=== PATIENT | female | born 1975 | race Caucasian/White ===

== ENCOUNTER 2018-06-24 11:08 | Emergency (ER) | payer MEDICAID ==
--- NOTE | 2018-06-24 11:21 | EDM.PDOC ---
ED HPI GENERAL MEDICAL PROBLEM - General Chief Complaint: General Stated Complaint: MED REFIL Time Seen by Provider: 06/24/18 11:13 Source of Information: Reports: Patient History Limitations: Reports: No Limitations - History of Present Illness INITIAL COMMENTS - FREE TEXT/NARRATIVE: HISTORY AND PHYSICAL: History of present illness: Patient is a 42-year-old female who presents to the emergency room requesting medication refill. She states [place] and had a primary care provider who did her pain management for her methadone and oxycodone. She was hospitalized at our facility on 06/09/18 for cardiomyopathy and congestive heart failure exacerbation. At that time she was informed that Dr. Kirby, our support technician, could be her primary care provider. She did have an echocardiogram done on 06/10/18 with the understanding that he would assume care and refill her medications at that time as well. During the appointment she was told that she needed to find a primary care provider and was unable to make an appointment until 06/28/[address] Briseno at [facility]. She states she has been out of her medications for the past 2 days. She takes these for chronic back pain and lumbar fusion. She denies any fever, chills, chest pain, shortness of breath or cough. Denies any GI or symptoms. She has been eating and drinking appropriately. Other than the medication refill she has no other current complaints or concerns. Review of systems: As per history of present illness and below otherwise all systems reviewed and negative. Past medical history: As per history of present illness and as reviewed below otherwise noncontributory. Surgical history: As per history of present illness and as reviewed below otherwise noncontributory. Social history: See social history for further information Family history: As per history of present illness and as reviewed below otherwise noncontributory. Physical exam: General: Well-developed and well-nourished 42-year-old female. Alert and oriented. Nontoxic appearing and in no acute distress. HEENT: Atraumatic, normocephalic, pupils equal and reactive bilaterally, negative for conjunctival pallor or scleral icterus, mucous membranes moist, neck supple, nontender, trachea midline. No drooling or trismus noted. No meningeal signs. No hot potato voice noted. Lungs: Clear to auscultation, breath sounds equal bilaterally, chest nontender. Heart: S1S2, regular rate and rhythm without overt murmur Abdomen: Soft, nondistended, nontender. Pelvis: Stable nontender. Genitourinary: Deferred. Rectal: Deferred. Skin: Intact, warm, dry. No lesions or rashes noted. Extremities: Atraumatic, moves all per self. Neurovascular unremarkable. Neuro: Awake, alert, oriented. Cranial nerves II through XII unremarkable. Cerebellum unremarkable. Motor and sensory unremarkable throughout. Exam nonfocal. Notes: Patient is aware that these medications are not routinely refilled through the emergency room. A lengthy discussion was had about appropriate follow-up and establishment of primary care. She does have an appointment 5 days from now. I will not refill her methadone. We'll give her a few tablets of her oxycodone to get her through to her appointment on Thursday. She is aware that these medications will not further be refilled through the emergency department. She voices understanding and is agreeable to plan of care. Denies any further questions or concerns at this time. Diagnostics: None Therapeutics: None Prescription: Oxycodone (#20) Impression: Encounter for medication refill History of chronic pain Plan: 1. Please keep your appointment with Dr. Briseno at [facility] on 06/28/2018. 2. Continue taking your medications as prescribed. 3. Return to the ED as needed and as discussed. Definitive disposition and diagnosis as appropriate pending reevaluation and review of above. - Related Data Allergies Allergy/AdvReac Type Severity Reaction Status Date / Time No Known Allergies Allergy Verified 06/24/18 11:23 Home Meds: Home Meds Melatonin 3 mg PO BEDTIME PRN 06/09/18 [History] Methadone 10 mg PO QID 06/09/18 [History] oxyCODONE HCl [Oxycodone HCl] 5 mg PO TID 06/09/18 [History] Ferrous Fumarate 324 mg PO DAILY 30 Days #30 tablet 06/10/18 [Rx] Furosemide 20 mg PO DAILY 30 Days #30 tab 06/10/18 [Rx] oxyCODONE 5 mg PO TID PRN #20 tab 06/24/18 [Rx] Past Medical History Cardiovascular History: Reports: Blood Clots/VTE/DVT, Cardiomyopathy, Heart Failure, Other (See Below) Other Cardiovascular History: Blood clot left leg Mar 2018 [employer] History: Reports: Musculoskeletal History: Reports: Back Pain, Chronic Psychiatric History: Reports: Depression Hematologic History: Reports: Anemia, Iron Deficiency Other Hematologic History: needs iron infusions - Infectious Disease History Infectious Disease History: Reports: Chicken Pox - Past Surgical History Cardiovascular Surgical History: Reports: None GI Surgical History: Reports: Appendectomy, Bariatric Procedure, Cholecystectomy Musculoskeletal Surgical History: Reports: Other (See Below) Other Musculoskeletal Surgeries/Procedures:: L5S1 fusion Social & Family History - Family History Family Medical History: Noncontributory (Father had liver cancer; mother had a thyroid problem) HEENT: Reports: None Endocrine/Metabolic: Reports: Other (See Below) Other Endocrine/Metabolic Family History: non functioning thyroid Oncologic: Reports: Liver - Caffeine Use Caffeine Use: Reports: None ED ROS GENERAL - Review of Systems Review Of Systems: ROS reveals no pertinent complaints other than HPI. ED EXAM, GENERAL - Physical Exam Exam: See Below (See dictation) Course - Vital Signs Last Recorded V/S: Last Vital Signs Temp 97.2 F 06/24/18 11:24 Pulse 101 H 06/24/18 11:24 Resp 16 06/24/18 11:24 BP 120/70 06/24/18 11:24 Pulse Ox 97 06/24/18 11:24 Departure - Departure Time of Disposition: 11:29 Disposition: Home, Self-Care 01 Clinical Impression: Encounter for medication refill, History of chronic pain - Discharge Information Prescriptions: oxyCODONE 5 mg PO TID PRN #20 tab PRN Reason: Pain (Severe 7-10) Referrals: PCP,Unknown [Primary Care Provider] - Forms: ED Department Discharge Additional Instructions: The following information is given to patients seen in the emergency department who are being discharged to home. This information is to outline your options for follow-up care. We provide all patients seen in our emergency department with a follow-up referral. The need for follow-up, as well as the timing and circumstances, are variable depending upon the specifics of your emergency department visit. If you don't have a primary care physician on staff, we will provide you with a referral. We always advise you to contact your personal physician following an emergency department visit to inform them of the circumstance of the visit and for follow-up with them and/or the need for any referrals to a consulting specialist. The emergency department will also refer you to a specialist when appropriate. This referral assures that you have the opportunity for follow-up care with a specialist. All of these measure are taken in an effort to provide you with optimal care, which includes your follow-up. Under all circumstances we always encourage you to contact your private physician who remains a resource for coordinating your care. When calling for follow-up care, please make the office aware that this follow-up is from your recent emergency room visit. If for any reason you are refused follow-up, please contact the [facility] Emergency Department at and asked to speak to the emergency department charge nurse. [facility] [address] [place] [id number] [facility] [address] [place] [id number] 1. Please keep your appointment with Dr. Briseno at [facility] on 06/28/2018. 2. Continue taking your medications as prescribed. 3. Return to the ED as needed and as discussed.
== END 2018-06-24 11:59 | disposition home or self-care (01) ==
LOC: MW.ED 11:08
DX: G89.29 Other chronic pain (principal); M54.9 Dorsalgia, unspecified; M43.27 Fusion of spine, lumbosacral region; D50.9 Iron deficiency anemia, unspecified; I50.9 Heart failure, unspecified; F32.9 Major depressive disorder, single episode, unspecified; Z79.899 Other long term (current) drug therapy
CPT/HCPCS: 99281; 99282

== ENCOUNTER 2018-08-12 16:59 | Emergency (ER) | payer MEDICAID ==
--- NOTE | 2018-08-12 17:15 | EDM.PDOC ---
<Maren Ureña - Last Filed: 08/12/18 19:54> ED HPI GENERAL MEDICAL PROBLEM - General Chief Complaint: Lower Extremity Injury/Pain Stated Complaint: PAIN IN RIGHT LEG Time Seen by Provider: 08/12/18 17:00 - History of Present Illness INITIAL COMMENTS - FREE TEXT/NARRATIVE: This case was endorsed to me to follow up the consult per Dr. Morfin as he has come here to decide on disposition of patient either for admission or discharge home. The patient was offered admission by Dr. Morfin and she is declining at this time. Please see his consult note for further information. We will place the patient's name on the expedited follow-up with Dr. Kirby our receiving supervisor, whom she has seen before. Dr. Morfin is also recommending that the patient double her Lasix, she is currently taking 40 mg once a day and he is recommending 40 mg twice a day. Patient is comfortable with this care plan. The patient is aware of risks of not being admitted and is comfortable with this Impression: CHF exacerbation with history of same, declining admission - Related Data Allergies Allergy/AdvReac Type Severity Reaction Status Date / Time No Known Allergies Allergy Verified 06/24/18 11:23 Home Meds: Home Meds Melatonin 3 mg PO BEDTIME PRN 06/09/18 [History] Methadone 10 mg PO QID 06/09/18 [History] oxyCODONE HCl [Oxycodone HCl] 5 mg PO TID 06/09/18 [History] Ferrous Fumarate 324 mg PO DAILY 30 Days #30 tablet 06/10/18 [Rx] oxyCODONE 5 mg PO TID PRN #20 tab 06/24/18 [Rx] Carvedilol [Coreg] 3.125 mg PO BID 08/12/18 [History] Furosemide 1 tab PO DAILY 08/12/18 [History] Lisinopril [Prinivil] 2.5 mg PO DAILY 08/12/18 [History] Review of Systems - Review of Systems Review Of Systems: ROS reveals no pertinent complaints other than HPI. ED EXAM, GENERAL - Physical Exam Exam: See Below (See dictation) Course - Vital Signs Last Recorded V/S: Last Vital Signs Temp 97.7 F 08/12/18 17:13 Pulse 93 08/12/18 20:17 Resp 16 08/12/18 20:17 BP 117/64 08/12/18 20:17 Pulse Ox 98 08/12/18 20:17 - Orders/Labs/Meds Orders: Active Orders 24 hr Category Date Time Status Notify Provider Consults [RC] ASDIRECTED Care 08/12/18 19:14 Active Consult to Physician [CONS] Stat Cons 08/12/18 19:14 Active Saline Lock Insert [OM.PC] Stat Oth 08/12/18 17:29 Ordered Labs: Laboratory Tests 08/12/18 08/12/18 08/12/18 Range/Units 17:45 17:45 17:45 WBC 6.34 (4.0-11.0) K/uL RBC 4.60 (4.30-5.90) M/uL Hgb 10.4 L (12.0-16.0) g/dL Hct 33.3 L (36.0-46.0) % MCV 72.4 L (80.0-98.0) fL MCH 22.6 L (27.0-32.0) pg MCHC 31.2 (31.0-37.0) g/dL RDW Std Deviation 50.2 (28.0-62.0) fl RDW Coeff of Fiordaliza 19 H (11.0-15.0) % Plt Count 243 (150-400) K/uL MPV 9.90 (7.40-12.00) fL Neut % (Auto) 51.8 (48.0-80.0) % Lymph % (Auto) 30.9 (16.0-40.0) % Harvey % (Auto) 12.8 (0.0-15.0) % Eos % (Auto) 3.6 (0.0-7.0) % Baso % (Auto) 0.9 (0.0-1.5) % Neut # (Auto) 3.3 (1.4-5.7) K/uL Lymph # (Auto) 2.0 (0.6-2.4) K/uL Harvey # (Auto) 0.8 (0.0-0.8) K/uL Eos # (Auto) 0.2 (0.0-0.7) K/uL Baso # (Auto) 0.1 (0.0-0.1) K/uL Nucleated RBC % 0.0 /100WBC Nucleated RBCs # 0 K/uL INR APTT (18.6-31.3) SEC Sodium 140 (136-145) mmol/L Potassium 4.1 (3.5-5.1) mmol/L Chloride 105 (98-107) mmol/L Carbon Dioxide 25.2 (21.0-32.0) mmol/L BUN 19 H (7.0-18.0) mg/dL Creatinine 0.9 (0.6-1.0) mg/dL Est Cr Clr Drug Dosing TNP Estimated GFR (MDRD) > 60.0 ml/min Glucose 78 (74-106) mg/dL Calcium 8.0 L (8.5-10.1) mg/dL Total Bilirubin 0.8 (0.2-1.0) mg/dL AST 21 (15-37) IU/L ALT 21 (14-63) IU/L Alkaline Phosphatase 77 (46-116) U/L B-Natriuretic Peptide (<100) PG/ML Total Protein 6.9 (6.4-8.2) g/dL Albumin 3.1 L (3.4-5.0) g/dL Globulin 3.8 (2.6-4.0) g/dL Albumin/Globulin Ratio 0.8 L (0.9-1.6) HCG, Qual NEGATIVE (NEG) 08/12/18 08/12/18 Range/Units 17:45 17:45 WBC (4.0-11.0) K/uL RBC (4.30-5.90) M/uL Hgb (12.0-16.0) g/dL Hct (36.0-46.0) % MCV (80.0-98.0) fL MCH (27.0-32.0) pg MCHC (31.0-37.0) g/dL RDW Std Deviation (28.0-62.0) fl RDW Coeff of Fiordaliza (11.0-15.0) % Plt Count (150-400) K/uL MPV (7.40-12.00) fL Neut % (Auto) (48.0-80.0) % Lymph % (Auto) (16.0-40.0) % Harvey % (Auto) (0.0-15.0) % Eos % (Auto) (0.0-7.0) % Baso % (Auto) (0.0-1.5) % Neut # (Auto) (1.4-5.7) K/uL Lymph # (Auto) (0.6-2.4) K/uL Harvey # (Auto) (0.0-0.8) K/uL Eos # (Auto) (0.0-0.7) K/uL Baso # (Auto) (0.0-0.1) K/uL Nucleated RBC % /100WBC Nucleated RBCs # K/uL INR 1.13 APTT 25.5 (18.6-31.3) SEC Sodium (136-145) mmol/L Potassium (3.5-5.1) mmol/L Chloride (98-107) mmol/L Carbon Dioxide (21.0-32.0) mmol/L BUN (7.0-18.0) mg/dL Creatinine (0.6-1.0) mg/dL Est Cr Clr Drug Dosing Estimated GFR (MDRD) ml/min Glucose (74-106) mg/dL Calcium (8.5-10.1) mg/dL Total Bilirubin (0.2-1.0) mg/dL AST (15-37) IU/L ALT (14-63) IU/L Alkaline Phosphatase (46-116) U/L B-Natriuretic Peptide 1050 H (<100) PG/ML Total Protein (6.4-8.2) g/dL Albumin (3.4-5.0) g/dL Globulin (2.6-4.0) g/dL Albumin/Globulin Ratio (0.9-1.6) HCG, Qual (NEG) Meds: Medications Discontinued Medications Generic Name Dose Route Start Last Admin Trade Name Freq PRN Reason Stop Dose Admin Sodium Chloride 10 ml 08/12/18 17:29 08/12/18 17:47 Saline Flush FLUSH 10 ml ASDIRECTED PRN Administration Keep Vein Open Sodium Chloride 2.5 ml 08/12/18 17:29 08/12/18 17:47 Saline Flush FLUSH 2.5 ml ASDIRECTED PRN Administration Keep Vein Open Departure - Departure Time of Disposition: 19:55 Disposition: Home, Self-Care 01 Condition: Good Clinical Impression: Acute exacerbation of congestive heart failure Qualifiers: Heart failure type: unspecified Qualified Code(s): I50.9 - Heart failure, unspecified - Discharge Information Instructions: Heart Failure Exacerbation Referrals: PCP,Unknown [Primary Care Provider] - Forms: ED Department Discharge Additional Instructions: The following information is given to patients seen in the emergency department who are being discharged to home. This information is to outline your options for follow-up care. We provide all patients seen in our emergency department with a follow-up referral. The need for follow-up, as well as the timing and circumstances, are variable depending upon the specifics of your emergency department visit. If you don't have a primary care physician on staff, we will provide you with a referral. We always advise you to contact your personal physician following an emergency department visit to inform them of the circumstance of the visit and for follow-up with them and/or the need for any referrals to a consulting specialist. The emergency department will also refer you to a specialist when appropriate. This referral assures that you have the opportunity for followup care with a specialist. All of these measure are taken in an effort to provide you with optimal care, which includes your followup. Under all circumstances we always encourage you to contact your private physician who remains a resource for coordinating your care. When calling for followup care, please make the office aware that this follow-up is from your recent emergency room visit. If for any reason you are refused follow-up, please contact the [facility] emergency department at and ask to speak to the emergency department charge nurse. [facility] Primary care- Internal Medicine and Family [address] Morfin's advice and take your Lasix, 40 mg, twice a day versus once a day. Please call the clinic first thing in the morning to schedule an expedited follow-up with Dr. Kirby the receiving supervisor as was discussed. Return to ER as needed as discussed - My Orders Last 24 Hours: My Active Orders 08/12/18 17:29 Saline Lock Insert [OM.PC] Stat - Assessment/Plan Last 24 Hours: My Active Orders 08/12/18 17:29 Saline Lock Insert [OM.PC] Stat <Gertrude Noel - Last Filed: 08/12/18 22:11> ED HPI GENERAL MEDICAL PROBLEM - History of Present Illness INITIAL COMMENTS - FREE TEXT/NARRATIVE: I did not physically see this patient. Void note. Dr. Macdonald saw patient and assumed care, diagnostics, and disposition for patient. Right Lower Leg Pain Score (Numeric/FACES): 8 Past Medical History Cardiovascular History: Reports: Blood Clots/VTE/DVT, Cardiomyopathy, Heart Failure, Other (See Below) Other Cardiovascular History: Blood clot left leg Mar 2018 Gastrointestinal History: Reports: None Genitourinary History: Reports: None ARCHITECTURE INTERN History: Reports: Musculoskeletal History: Reports: Back Pain, Chronic Neurological History: Reports: None Psychiatric History: Reports: Depression Endocrine/Metabolic History: Reports: None Hematologic History: Reports: Anemia, Iron Deficiency Other Hematologic History: needs iron infusions Immunologic History: Reports: None Oncologic (Cancer) History: Reports: None Dermatologic History: Reports: None - Infectious Disease History Infectious Disease History: Reports: Chicken Pox - Past Surgical History Cardiovascular Surgical History: Reports: None GI Surgical History: Reports: Appendectomy, Bariatric Procedure, Cholecystectomy Musculoskeletal Surgical History: Reports: Other (See Below) Other Musculoskeletal Surgeries/Procedures:: [id number] fusion Social & Family History - Family History Family Medical History: Noncontributory (Father had liver cancer; mother had a thyroid problem) HEENT: Reports: None Endocrine/Metabolic: Reports: Other (See Below) Other Endocrine/Metabolic Family History: non functioning thyroid Oncologic: Reports: Liver - Caffeine Use Caffeine Use: Reports: None Review of Systems - Review of Systems Review Of Systems: ROS reveals no pertinent complaints other than HPI. ED EXAM, GENERAL - Physical Exam Exam: See Below (See dictation) Course - Vital Signs Last Recorded V/S: Last Vital Signs Temp 97.7 F 08/12/18 17:13 Pulse 93 08/12/18 20:17 Resp 16 08/12/18 20:17 BP 117/64 08/12/18 20:17 Pulse Ox 98 08/12/18 20:17 - Orders/Labs/Meds Orders: Active Orders 24 hr Category Date Time Status Notify Provider Consults [RC] ASDIRECTED Care 08/12/18 19:14 Active Consult to Physician [CONS] Stat Cons 08/12/18 19:14 Active Saline Lock Insert [OM.PC] Stat Oth 08/12/18 17:29 Ordered Labs: Laboratory Tests 08/12/18 08/12/18 08/12/18 Range/Units 17:45 17:45 17:45 WBC 6.34 (4.0-11.0) K/uL RBC 4.60 (4.30-5.90) M/uL Hgb 10.4 L (12.0-16.0) g/dL Hct 33.3 L (36.0-46.0) % MCV 72.4 L (80.0-98.0) fL MCH 22.6 L (27.0-32.0) pg MCHC 31.2 (31.0-37.0) g/dL RDW Std Deviation 50.2 (28.0-62.0) fl RDW Coeff of Fiordaliza 19 H (11.0-15.0) % Plt Count 243 (150-400) K/uL MPV 9.90 (7.40-12.00) fL Neut % (Auto) 51.8 (48.0-80.0) % Lymph % (Auto) 30.9 (16.0-40.0) % Harvey % (Auto) 12.8 (0.0-15.0) % Eos % (Auto) 3.6 (0.0-7.0) % Baso % (Auto) 0.9 (0.0-1.5) % Neut # (Auto) 3.3 (1.4-5.7) K/uL Lymph # (Auto) 2.0 (0.6-2.4) K/uL Harvey # (Auto) 0.8 (0.0-0.8) K/uL Eos # (Auto) 0.2 (0.0-0.7) K/uL Baso # (Auto) 0.1 (0.0-0.1) K/uL Nucleated RBC % 0.0 /100WBC Nucleated RBCs # 0 K/uL INR APTT (18.6-31.3) SEC Sodium 140 (136-145) mmol/L Potassium 4.1 (3.5-5.1) mmol/L Chloride 105 (98-107) mmol/L Carbon Dioxide 25.2 (21.0-32.0) mmol/L BUN 19 H (7.0-18.0) mg/dL Creatinine 0.9 (0.6-1.0) mg/dL Est Cr Clr Drug Dosing TNP Estimated GFR (MDRD) > 60.0 ml/min Glucose 78 (74-106) mg/dL Calcium 8.0 L (8.5-10.1) mg/dL Total Bilirubin 0.8 (0.2-1.0) mg/dL AST 21 (15-37) IU/L ALT 21 (14-63) IU/L Alkaline Phosphatase 77 (46-116) U/L B-Natriuretic Peptide (<100) PG/ML Total Protein 6.9 (6.4-8.2) g/dL Albumin 3.1 L (3.4-5.0) g/dL Globulin 3.8 (2.6-4.0) g/dL Albumin/Globulin Ratio 0.8 L (0.9-1.6) HCG, Qual NEGATIVE (NEG) 08/12/18 08/12/18 Range/Units 17:45 17:45 WBC (4.0-11.0) K/uL RBC (4.30-5.90) M/uL Hgb (12.0-16.0) g/dL Hct (36.0-46.0) % MCV (80.0-98.0) fL MCH (27.0-32.0) pg MCHC (31.0-37.0) g/dL RDW Std Deviation (28.0-62.0) fl RDW Coeff of Fiordaliza (11.0-15.0) % Plt Count (150-400) K/uL MPV (7.40-12.00) fL Neut % (Auto) (48.0-80.0) % Lymph % (Auto) (16.0-40.0) % Harvey % (Auto) (0.0-15.0) % Eos % (Auto) (0.0-7.0) % Baso % (Auto) (0.0-1.5) % Neut # (Auto) (1.4-5.7) K/uL Lymph # (Auto) (0.6-2.4) K/uL Harvey # (Auto) (0.0-0.8) K/uL Eos # (Auto) (0.0-0.7) K/uL Baso # (Auto) (0.0-0.1) K/uL Nucleated RBC % /100WBC Nucleated RBCs # K/uL INR 1.13 APTT 25.5 (18.6-31.3) SEC Sodium (136-145) mmol/L Potassium (3.5-5.1) mmol/L Chloride (98-107) mmol/L Carbon Dioxide (21.0-32.0) mmol/L BUN (7.0-18.0) mg/dL Creatinine (0.6-1.0) mg/dL Est Cr Clr Drug Dosing Estimated GFR (MDRD) ml/min Glucose (74-106) mg/dL Calcium (8.5-10.1) mg/dL Total Bilirubin (0.2-1.0) mg/dL AST (15-37) IU/L ALT (14-63) IU/L Alkaline Phosphatase (46-116) U/L B-Natriuretic Peptide 1050 H (<100) PG/ML Total Protein (6.4-8.2) g/dL Albumin (3.4-5.0) g/dL Globulin (2.6-4.0) g/dL Albumin/Globulin Ratio (0.9-1.6) HCG, Qual (NEG) Meds: Medications Discontinued Medications Generic Name Dose Route Start Last Admin Trade Name Freq PRN Reason Stop Dose Admin Sodium Chloride 10 ml 08/12/18 17:29 08/12/18 17:47 Saline Flush FLUSH 10 ml ASDIRECTED PRN Administration Keep Vein Open Sodium Chloride 2.5 ml 08/12/18 17:29 08/12/18 17:47 Saline Flush FLUSH 2.5 ml ASDIRECTED PRN Administration Keep Vein Open - My Orders Last 24 Hours: My Active Orders 08/12/18 17:29 Saline Lock Insert [OM.PC] Stat - Assessment/Plan Last 24 Hours: My Active Orders 08/12/18 17:29 Saline Lock Insert [OM.PC] Stat <Dai Macdonald - Last Filed: 08/13/18 06:54> ED HPI GENERAL MEDICAL PROBLEM - General Source of Information: Reports: Patient History Limitations: Reports: No Limitations - History of Present Illness INITIAL COMMENTS - FREE TEXT/NARRATIVE: History of present illness: []Patient has a history of cardiomyopathy is followed by Dr. Alvarez 2 weeks ago he increased her Lasix from 20 mg to 40 mg day. Yesterday she started having right leg pain with increased swelling and is concerned about a DVT. He has had a DVT in the past and was treated with anti-coagulants for 6 months. She is unaware if she was worked up for why she had a DVT. Patient states she is more short of breath than normal chest pain, cough,, chills, nausea or vomiting. Review of systems: As per history of present illness and below otherwise all systems reviewed and negative. Past medical history: As per history of present illness and as reviewed below otherwise noncontributory. Surgical history: As per history of present illness and as reviewed below otherwise noncontributory. Social history: No reported history of drug or alcohol abuse. Family history: As per history of present illness and as reviewed below otherwise noncontributory. Physical exam: General: Well developed, well nourished in NAD HEENT: Atraumatic, normocephalic, pupils reactive, negative for conjunctival pallor or scleral icterus, mucous membranes moist, throat clear, neck supple, nontender, trachea midline. Lungs: Clear to auscultation, breath sounds equal bilaterally, chest nontender. No rales, 2+ pitting edema bilateral lower extremities Heart: S1S2, regular, negative for clicks, rubs, or JVD. Abdomen: NABS, Soft, nondistended, nontender. Negative for masses or hepatosplenomegaly. Negative for costovertebral tenderness. Pelvis: Stable nontender. Genitourinary: Deferred. Rectal: Deferred. Extremities: Atraumatic, 2+ pitting edema right inner thigh tender without erythema or palpable cords negative for cords or calf pain. Neurovascular unremarkable. Neuro: Awake, alert, oriented. Cranial nerves II through XII unremarkable. Cerebellum unremarkable. Motor and sensory unremarkable throughout. Exam nonfocal. Skin:warm and dry Diagnostics: CBC, chemistry, BNP, chest x-ray, Doppler ultrasound right lower extremity negative Therapeutics: ED Course: Improved however blood pressure was a bit low and BNP. Increase to 10,050, I did consult Dr. Morfin who came in to evaluate this patient for potential admission however patient refused admission. Impression: Cardiomyopathy, increasing congestive heart failure without respiratory distress Prescriptions: Double Lasix dosage to twice a day dosing from daily Plan: Follow-up with Dr. Kirby tomorrow Definitive disposition and diagnosis as appropriate pending reevaluation and review of above. Course - Orders/Labs/Meds Labs: Laboratory Tests 08/12/18 08/12/18 08/12/18 Range/Units 17:45 17:45 17:45 WBC 6.34 (4.0-11.0) K/uL RBC 4.60 (4.30-5.90) M/uL Hgb 10.4 L (12.0-16.0) g/dL Hct 33.3 L (36.0-46.0) % MCV 72.4 L (80.0-98.0) fL MCH 22.6 L (27.0-32.0) pg MCHC 31.2 (31.0-37.0) g/dL RDW Std Deviation 50.2 (28.0-62.0) fl RDW Coeff of Fiordaliza 19 H (11.0-15.0) % Plt Count 243 (150-400) K/uL MPV 9.90 (7.40-12.00) fL Neut % (Auto) 51.8 (48.0-80.0) % Lymph % (Auto) 30.9 (16.0-40.0) % Harvey % (Auto) 12.8 (0.0-15.0) % Eos % (Auto) 3.6 (0.0-7.0) % Baso % (Auto) 0.9 (0.0-1.5) % Neut # (Auto) 3.3 (1.4-5.7) K/uL Lymph # (Auto) 2.0 (0.6-2.4) K/uL Harvey # (Auto) 0.8 (0.0-0.8) K/uL Eos # (Auto) 0.2 (0.0-0.7) K/uL Baso # (Auto) 0.1 (0.0-0.1) K/uL Nucleated RBC % 0.0 /100WBC Nucleated RBCs # 0 K/uL INR APTT (18.6-31.3) SEC Sodium 140 (136-145) mmol/L Potassium 4.1 (3.5-5.1) mmol/L Chloride 105 (98-107) mmol/L Carbon Dioxide 25.2 (21.0-32.0) mmol/L BUN 19 H (7.0-18.0) mg/dL Creatinine 0.9 (0.6-1.0) mg/dL Est Cr Clr Drug Dosing TNP Estimated GFR (MDRD) > 60.0 ml/min Glucose 78 (74-106) mg/dL Calcium 8.0 L (8.5-10.1) mg/dL Total Bilirubin 0.8 (0.2-1.0) mg/dL AST 21 (15-37) IU/L ALT 21 (14-63) IU/L Alkaline Phosphatase 77 (46-116) U/L B-Natriuretic Peptide (<100) PG/ML Total Protein 6.9 (6.4-8.2) g/dL Albumin 3.1 L (3.4-5.0) g/dL Globulin 3.8 (2.6-4.0) g/dL Albumin/Globulin Ratio 0.8 L (0.9-1.6) HCG, Qual NEGATIVE (NEG) 08/12/18 08/12/18 Range/Units 17:45 17:45 WBC (4.0-11.0) K/uL RBC (4.30-5.90) M/uL Hgb (12.0-16.0) g/dL Hct (36.0-46.0) % MCV (80.0-98.0) fL MCH (27.0-32.0) pg MCHC (31.0-37.0) g/dL RDW Std Deviation (28.0-62.0) fl RDW Coeff of Fiordaliza (11.0-15.0) % Plt Count (150-400) K/uL MPV (7.40-12.00) fL Neut % (Auto) (48.0-80.0) % Lymph % (Auto) (16.0-40.0) % Harvey % (Auto) (0.0-15.0) % Eos % (Auto) (0.0-7.0) % Baso % (Auto) (0.0-1.5) % Neut # (Auto) (1.4-5.7) K/uL Lymph # (Auto) (0.6-2.4) K/uL Harvey # (Auto) (0.0-0.8) K/uL Eos # (Auto) (0.0-0.7) K/uL Baso # (Auto) (0.0-0.1) K/uL Nucleated RBC % /100WBC Nucleated RBCs # K/uL INR 1.13 APTT 25.5 (18.6-31.3) SEC Sodium (136-145) mmol/L Potassium (3.5-5.1) mmol/L Chloride (98-107) mmol/L Carbon Dioxide (21.0-32.0) mmol/L BUN (7.0-18.0) mg/dL Creatinine (0.6-1.0) mg/dL Est Cr Clr Drug Dosing Estimated GFR (MDRD) ml/min Glucose (74-106) mg/dL Calcium (8.5-10.1) mg/dL Total Bilirubin (0.2-1.0) mg/dL AST (15-37) IU/L ALT (14-63) IU/L Alkaline Phosphatase (46-116) U/L B-Natriuretic Peptide 1050 H (<100) PG/ML Total Protein (6.4-8.2) g/dL Albumin (3.4-5.0) g/dL Globulin (2.6-4.0) g/dL Albumin/Globulin Ratio (0.9-1.6) HCG, Qual (NEG) Departure - Departure Time of Disposition: 20:20 - Discharge Information *PRESCRIPTION DRUG MONITORING PROGRAM REVIEWED*: No *COPY OF PRESCRIPTION DRUG MONITORING REPORT IN PATIENT DOMINIQUE: No
[2018-08-12] MEDS ORDERED: Sodium Chloride 0.9% 10 ML Syringe FLUSH PRN (17:29)
[2018-08-12] MEDS ORDERED: Sodium Chloride 0.9% 2.5 ML Syringe FLUSH PRN (17:29)
[2018-08-12 18:27] LABS: CHLORIDE,CL 105 mmol/L (98-107); SODIUM,NA 140 mmol/L (136-145)
--- NOTE | 2018-08-12 18:35 | US ---
INDICATION: Right leg pain since yesterday. Swelling. History of DVT March 2017. COMPARISON: None. TECHNIQUE: A compression venous ultrasound exam was performed of the right lower extremity using deluna-scale imaging, color Doppler and spectral Doppler analysis. FINDINGS: Sonographic imaging of the right lower extremity demonstrates normal compressibility and color Doppler venous blood flow within the common femoral vein, deep femoral vein, and the proximal greater saphenous vein. Within the thigh, the femoral vein is patent and compressible. At a lower level, the popliteal and posterior tibial veins also show normal compressibility and color Doppler venous blood flow. Edema is identified within the soft tissues in the thigh. Limited imaging of the contralateral groin demonstrates a normal spectral waveform and color Doppler venous blood flow within the left common femoral vein. IMPRESSION: Normal venous ultrasound exam. No evidence of deep vein thrombosis within the right lower extremity. Edema of the soft tissues within the thigh. Dictated by Nehal Booth MD @ Aug 12 2018 6:33PM Signed by Dr. Nehal Booth @ Aug 12 2018 6:34PM
--- NOTE | 2018-08-12 19:15 | CR ---
Indication: Chest pain. Shortness of breath. Leg swelling. Fatigue. History of cardiomyopathy. Technique: A single AP portable view of the chest was obtained. Comparison: June 09, 2018. Findings: The heart is enlarged, stable. No infiltrate, pleural effusion, or pneumothorax is identified. Impression: Stable chest x-ray. Dictated by Nehal Booth MD @ Aug 12 2018 7:12PM Signed by Dr. Nehal Booth @ Aug 12 2018 7:13PM
--- NOTE | 2018-08-12 20:12 | PCM.HP ---
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 She has a history of DVT in left leg and was concerned she might have a another clot. She reports an increase in her shortness of breath with four pillow orthopnea. She also reports an increase in weight in ten pounds. Her lasix was recently increased to 40 mg daily. Doppler of the the right leg performed in the ED was negative for DVT. Right Lower Leg Pain Score (Numeric/FACES): 8 - Related Data Allergies/Adverse Reactions: Allergies Allergy/AdvReac Type Severity Reaction Status Date / Time No Known Allergies Allergy Verified 06/24/18 11:23 Home Medications: Home Meds Melatonin 3 mg PO BEDTIME PRN 06/09/18 [History] Methadone 10 mg PO QID 06/09/18 [History] oxyCODONE HCl [Oxycodone HCl] 5 mg PO TID 06/09/18 [History] Ferrous Fumarate 324 mg PO DAILY 30 Days #30 tablet 06/10/18 [Rx] oxyCODONE 5 mg PO TID PRN #20 tab 06/24/18 [Rx] Carvedilol [Coreg] 3.125 mg PO BID 08/12/18 [History] Furosemide 1 tab PO DAILY 08/12/18 [History] Lisinopril [Prinivil] 2.5 mg PO DAILY 08/12/18 [History] Past Medical History Cardiovascular History: Reports: Blood Clots/VTE/DVT, Cardiomyopathy, Heart Failure, Other (See Below) Other Cardiovascular History: Blood clot left leg Mar 2018 Gastrointestinal History: Reports: None Genitourinary History: Reports: None 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: Musculoskeletal History: Reports: Back Pain, Chronic Neurological History: Reports: None Psychiatric History: Reports: Depression Endocrine/Metabolic History: Reports: None Hematologic History: Reports: Anemia, Iron Deficiency Other Hematologic History: needs iron infusions Immunologic History: Reports: None Oncologic (Cancer) History: Reports: None Dermatologic History: Reports: None - Infectious Disease History Infectious Disease History: Reports: Chicken Pox - Past Surgical History Cardiovascular Surgical History: Reports: None GI Surgical History: Reports: Appendectomy, Bariatric Procedure, Cholecystectomy Musculoskeletal Surgical History: Reports: Other (See Below) Other Musculoskeletal Surgeries/Procedures:: [id number] fusion Social & Family History - Family History Family Medical History: Noncontributory (Father had liver cancer; mother had a thyroid problem) HEENT: Reports: None Endocrine/Metabolic: Reports: Other (See Below) Other Endocrine/Metabolic Family History: non functioning thyroid Oncologic: Reports: Liver - Tobacco Use Smoking Status *Q: Never Smoker Second Hand Smoke Exposure: No - Caffeine Use Caffeine Use: Reports: None - Recreational Drug Use Recreational Drug Use: Yes Recreational Drug Type: Reports: Marijuana/Hashish H&P Review of Systems - Review of Systems: Review Of Systems: ROS reveals no pertinent complaints other than HPI. Exam - Exam Exam: See Below - Vital Signs Vital Signs: Last Vital Signs Temp 36.5 C 08/12/18 17:13 Pulse 77 08/12/18 18:38 Resp 16 08/12/18 18:38 BP 88/52 L 08/12/18 18:38 Pulse Ox 98 08/12/18 18:38 Weight: 90.718 kg - Exam General: Alert, Oriented HEENT: Mucosa Moist & [place] Neck: Supple, Trachea Midline Lungs: Clear to Auscultation, Normal Respiratory Effort Cardiovascular: Regular Rate, Regular Rhythm GI/Abdominal Exam: Normal Bowel Sounds, Soft, Non-Tender Extremities: Non-Tender, No Pedal Edema Skin: Warm, Dry, Intact Neurological: Cranial Nerves Intact, Reflexes Equal Bilateral - Patient Data Lab Results Last 24 hrs: Laboratory Results - last 24 hr 08/12/18 08/12/18 08/12/18 Range/Units 17:45 17:45 17:45 WBC 6.34 (4.0-11.0) K/uL RBC 4.60 (4.30-5.90) M/uL Hgb 10.4 L (12.0-16.0) g/dL Hct 33.3 L (36.0-46.0) % MCV 72.4 L (80.0-98.0) fL MCH 22.6 L (27.0-32.0) pg MCHC 31.2 (31.0-37.0) g/dL RDW Std Deviation 50.2 (28.0-62.0) fl RDW Coeff of Fiordaliza 19 H (11.0-15.0) % Plt Count 243 (150-400) K/uL MPV 9.90 (7.40-12.00) fL Neut % (Auto) 51.8 (48.0-80.0) % Lymph % (Auto) 30.9 (16.0-40.0) % Hickman % (Auto) 12.8 (0.0-15.0) % Eos % (Auto) 3.6 (0.0-7.0) % Baso % (Auto) 0.9 (0.0-1.5) % Neut # (Auto) 3.3 (1.4-5.7) K/uL Lymph # (Auto) 2.0 (0.6-2.4) K/uL Hickman # (Auto) 0.8 (0.0-0.8) K/uL Eos # (Auto) 0.2 (0.0-0.7) K/uL Baso # (Auto) 0.1 (0.0-0.1) K/uL Nucleated RBC % 0.0 /100WBC Nucleated RBCs # 0 K/uL INR APTT (18.6-31.3) SEC Sodium 140 (136-145) mmol/L Potassium 4.1 (3.5-5.1) mmol/L Chloride 105 (98-107) mmol/L Carbon Dioxide 25.2 (21.0-32.0) mmol/L BUN 19 H (7.0-18.0) mg/dL Creatinine 0.9 (0.6-1.0) mg/dL Est Cr Clr Drug Dosing TNP Estimated GFR (MDRD) > 60.0 ml/min Glucose 78 (74-106) mg/dL Calcium 8.0 L (8.5-10.1) mg/dL Total Bilirubin 0.8 (0.2-1.0) mg/dL AST 21 (15-37) IU/L ALT 21 (14-63) IU/L Alkaline Phosphatase 77 (46-116) U/L B-Natriuretic Peptide (<100) PG/ML Total Protein 6.9 (6.4-8.2) g/dL Albumin 3.1 L (3.4-5.0) g/dL Globulin 3.8 (2.6-4.0) g/dL Albumin/Globulin Ratio 0.8 L (0.9-1.6) HCG, Qual NEGATIVE (NEG) 08/12/18 08/12/18 Range/Units 17:45 17:45 WBC (4.0-11.0) K/uL RBC (4.30-5.90) M/uL Hgb (12.0-16.0) g/dL Hct (36.0-46.0) % MCV (80.0-98.0) fL MCH (27.0-32.0) pg MCHC (31.0-37.0) g/dL RDW Std Deviation (28.0-62.0) fl RDW Coeff of Fiordaliza (11.0-15.0) % Plt Count (150-400) K/uL MPV (7.40-12.00) fL Neut % (Auto) (48.0-80.0) % Lymph % (Auto) (16.0-40.0) % Hickman % (Auto) (0.0-15.0) % Eos % (Auto) (0.0-7.0) % Baso % (Auto) (0.0-1.5) % Neut # (Auto) (1.4-5.7) K/uL Lymph # (Auto) (0.6-2.4) K/uL Hickman # (Auto) (0.0-0.8) K/uL Eos # (Auto) (0.0-0.7) K/uL Baso # (Auto) (0.0-0.1) K/uL Nucleated RBC % /100WBC Nucleated RBCs # K/uL INR 1.13 APTT 25.5 (18.6-31.3) SEC Sodium (136-145) mmol/L Potassium (3.5-5.1) mmol/L Chloride (98-107) mmol/L Carbon Dioxide (21.0-32.0) mmol/L BUN (7.0-18.0) mg/dL Creatinine (0.6-1.0) mg/dL Est Cr Clr Drug Dosing Estimated GFR (MDRD) ml/min Glucose (74-106) mg/dL Calcium (8.5-10.1) mg/dL Total Bilirubin (0.2-1.0) mg/dL AST (15-37) IU/L ALT (14-63) IU/L Alkaline Phosphatase (46-116) U/L B-Natriuretic Peptide 1050 H (<100) PG/ML Total Protein (6.4-8.2) g/dL Albumin (3.4-5.0) g/dL Globulin (2.6-4.0) g/dL Albumin/Globulin Ratio (0.9-1.6) HCG, Qual (NEG) Result Diagrams: 08/12/18 17:45 08/12/18 17:45 Problem List Initiated/Reviewed/Updated: Yes Orders Last 24hrs: Active Orders 24 hr Category Date Time Status Notify Provider Consults [RC] ASDIRECTED Care 08/12/18 19:14 Active Consult to Physician [CONS] Stat Cons 08/12/18 19:14 Active Sodium Chloride 0.9% [Saline Flush] Med 08/12/18 17:29 Active 10 ml FLUSH ASDIRECTED PRN Sodium Chloride 0.9% [Saline Flush] Med 08/12/18 17:29 Active 2.5 ml FLUSH ASDIRECTED PRN Saline Lock Insert [OM.PC] Stat Oth 08/12/18 17:29 Ordered Medication Orders Sodium Chloride (Saline Flush) 10 ml FLUSH ASDIRECTED PRN PRN Reason: Keep Vein Open Last Admin: 08/12/18 17:47 Dose: 10 ml Sodium Chloride (Saline Flush) 2.5 ml FLUSH ASDIRECTED PRN PRN Reason: Keep Vein Open Last Admin: 08/12/18 17:47 Dose: 2.5 ml Assessment/Plan Comment:: 42 yo female who presents to the ED with symptoms suggestive of fluid overload from congestive heart failure. I recommended admission but patient has refused. I instructed her to take her lasix twice a day until follow up. Patient is to follow up with Dr. Briseno tomorrow and referred to expidited work up by Dr. Rendon.
== END 2018-08-12 20:18 | disposition home or self-care (01) ==
LOC: MW.ED 16:59
DX: I50.9 Heart failure, unspecified (principal); I42.9 Cardiomyopathy, unspecified; Z90.49 Acquired absence of other specified parts of digestive tract; Z98.84 Bariatric surgery status; Z79.899 Other long term (current) drug therapy; Z86.718 Personal history of other venous thrombosis and embolism; Z98.1 Arthrodesis status
CPT/HCPCS: 36415; 71045; 71045-26; 80053; 83880; 84703; 85025; 85610; 85730; 93005; 93971-26-RT; 93971-RT; 99284; 99284-25